=== PATIENT | female | born 1930 | race Caucasian/White ===

== ENCOUNTER 2019-08-04 15:10 | Emergency (ER) | payer MEDICARE, BC ==
[2019-08-04] MEDS ORDERED: Silver Nitrate Application 1 EACH ONE ×2 (15:49→15:50)
[2019-08-04] MEDS ORDERED: Oxymetazoline HCl 0.05% (30 ML BOT) ONE (15:58)
== END 2019-08-04 16:15 | disposition home or self-care (01) ==
LOC: BURERS 15:10
DX: R04.0 Epistaxis (principal); E78.5 Hyperlipidemia, unspecified; I10 Essential (primary) hypertension; Z79.899 Other long term (current) drug therapy; Z79.01 Long term (current) use of anticoagulants
CPT/HCPCS: 30901

== ENCOUNTER 2020-03-31 15:32 | Emergency (ER) | payer MEDICARE, BC | END 2020-03-31 15:59 | disposition home or self-care (01) | LOC: BURERS 15:32 | DX: S50.12XA Contusion of left forearm, initial encounter (principal); E78.5 Hyperlipidemia, unspecified; I10 Essential (primary) hypertension; W01.198A Fall on same level from slipping, tripping and stumbling with subsequent striking against other object, initial encounter; Z79.899 Other long term (current) drug therapy; Z79.01 Long term (current) use of anticoagulants | CPT/HCPCS: 99283 ==